=== PATIENT | female | born 1970 | race Caucasian/White ===

== ENCOUNTER 2017-12-28 11:01 | Emergency (ER) | payer OTHER ==
--- NOTE | 2017-12-28 11:12 | UC ---
Cardiac HPI - HPI Summary HPI Summary: Pt presents with neck pain, left sided jaw pain, heart "squeezing", and nausea. She tells me that her neck pain started first about 2 days ago and is causing tingling in her left arm. Yesterday she began to have nausea and left neck/jaw pain. This morning she felt ok, but her symptoms returned and she had chest pain described as a "squeezing" and felt dizzy. She tells me that she has a history of a cardiac abnormality and thinks its WPW. She is followed by cards and is scheduled for a stress echo in the coming weeks. Denies fever, chills, SOB, abdominal pain, vomiting, or headache. - History of Current Complaint Stated Complaint: ARM PAIN NECK PAIN INDIGESTION CHEST PAIN Time Seen by Provider: 12/28/17 11:03 Hx Obtained From: Patient Hx Last Menstrual Period: just finisheing Onset/Duration: Gradual Onset Character: Pressure/Squeezing - Allergy/Home Medications Allergies/Adverse Reactions: Allergies Allergy/AdvReac Type Severity Reaction Status Date / Time No Known Allergies Allergy Verified 12/28/17 11:18 Home Medications: Home Medications Gabapentin 300 mg PO DAILY 12/28/17 [History Confirmed 12/28/17] PMH/Surg Hx/FS Hx/Imm Hx - Additional Past Medical History Additional PMH: WPW Anxiety GI/ History: Gastroesophageal Reflux - Surgical History Surgical History: None - Family History Known Family History: Positive: None - reviewed & noncontributory - Social History Occupation: Employed Full-time Lives: With Family Alcohol Use: Occasionally Substance Use Type: None Smoking Status (MU): Never Smoked Tobacco Review of Systems Constitutional: Negative Skin: Negative Respiratory: Negative Cardiovascular: Chest Pain Gastrointestinal: Nausea Motor: Negative Neurovascular: Negative Musculoskeletal: Negative Neurological: Weakness All Other Systems Reviewed And Are Negative: Yes Physical Exam - Summary Physical Exam Summary: GENERAL: NAD. WDWN. No pain distress. SKIN: No rashes, sores, ulcers, masses, lesions. HEENT: Head: AT/NC Eyes: EOM intact. Conjunctiva clear without inflammation or discharge. NECK: Supple. Nontender. No lymphadenopathy. No JVD or carotid bruits. CHEST: CTAB. No r/r/w. No accessory muscle use. Breathing comfortably and in no distress. CV: RRR. Without m/r/g. Pulses intact. Brisk cap refill. ABDOMEN: NTTP. Bowel sounds present x4. NEURO: Alert. CN II-XII grossly intact. PSYCH: Age appropriate behavior. Triage Information Reviewed: Yes - Assessment/Plan Course Of Treatment: Sinus rhythm HR 95. No ST changes. Read by Dr. Connor. I advised the pt that she should be seen in the ED for an appropriate evaluation of her chest pain. She was agreeable to this and refused ambulance transfer - her will drive her. - Clinical Impression Provider Diagnoses: Dizziness. Chest pain. Nausea Discharge - Discharge Plan Condition: Stable Disposition: OTHER Discharge Disposition Comment: To [facility] by private vehicle Referrals: Rebecca Stephen MD [Primary Care Provider] - Additional Instructions: Please go to the [facility] ED for further evaluation of your chest pain. If your symptoms worsen - please wool puller and call 911.
[2017-12-28 11:18] VITALS: BP 123/73
== END 2017-12-28 11:23 ==
LOC: UCEAST 11:01
DX: R42 Dizziness and giddiness (principal); R07.9 Chest pain, unspecified; R11.0 Nausea; I45.6 Pre-excitation syndrome; K21.9 Gastro-esophageal reflux disease without esophagitis; F41.9 Anxiety disorder, unspecified
CPT/HCPCS: 93005; 99212; G0463

== ENCOUNTER 2017-12-28 11:49 | Emergency (ER) | payer OTHER ==
[2017-12-28 13:48] LABS: ABS Basophils 0 10^3/ul (0-0.2); ABS Eosinophils 0 10^3/ul (0-0.6); ABS Lymphocytes 1.2 10^3/ul (1.0-4.8); ABS Monocytes 0.5 10^3/ul (0-0.8); ABS Neutrophils 8.5 10^3/ul (1.5-7.7); ABS Nucleated RBC 0 10^3/ul; Eosinophil % 0.2 % (0-6); Hematocrit 40 % (35-47); Hemoglobin 13.6 g/dl (12.0-16.0); Lymphocyte % 11.8 % (25-47); Mean Corpuscular HGB Conc 34 g/dl (31-36); Mean Corpuscular Hemoglobin 31 pg (27-31); Mean Corpuscular Volume 91 fL (80-97); Mean Platelet Volume 9 um3 (7.4-10.4); Nucleated Red Blood Cells % 0; Platelet Count 249 10^3/ul (150-450); Red Blood Count 4.41 10^6/ul (4.0-5.4); Red Cell Distribution Width 13 % (10.5-15); White Blood Count 10.3 10^3/ul (3.5-10.8)
[2017-12-28 14:08] LABS: EGFR Non-African American 100.9 (>60)
--- NOTE | 2017-12-28 14:12 | RAD ---
HISTORY: Chest pain COMPARISONS: January 17, 2016 VIEWS: 1: frontal portable view of the chest at 1:55 PM FINDINGS: LINES AND TUBES: None. CARDIOMEDIASTINAL SILHOUETTE: The cardiomediastinal silhouette is normal for portable technique. PLEURA: The costophrenic angles are sharp. No pleural abnormalities are noted. LUNG PARENCHYMA: The lungs are clear. ABDOMEN: The upper abdomen is clear. There is no subphrenic gas. BONES AND SOFT TISSUES: No bone or soft tissue abnormalities are noted. IMPRESSION: NO ACTIVE CARDIOPULMONARY DISEASE.
[2017-12-28 17:19] VITALS: BP 100/67
--- NOTE | 2017-12-28 20:48 | ED ---
Samantha Zhang Edward, scribed for Durga Muhammad MD on 12/28/17 at 1317 . Complex/Multi-Sys Presentation - HPI Summary HPI Summary: 47 y/o female presents to the ED c/o squeezing sensation in her chest earlier today, lasting seconds that resolved. Pt also c/o neck and head pressure for a few weeks. Associated sx: upper ABD pain that radiates down bilateral arm pains starting yesterday, diarrhea. Pt states she has the ABD pain is chronic and is usually aggravated with certain foods. PMHx GERD. Pt states she has palpitations regularly, described as irregular "hiccup in heart". - History Of Current Complaint Chief Complaint: EDGeneral Time Seen by Provider: 12/28/17 13:16 Hx Obtained From: Patient Onset/Duration: Sudden Onset Timing: Intermittent, Lasting:, Seconds Character: Pressure - squeezing at chest Associated Signs And Symptoms: Positive: Chest Pain - squeezing, Diarrhea, Other - upper ABD pain radiating down both arms - Allergies/Home Medications Allergies/Adverse Reactions: Allergies Allergy/AdvReac Type Severity Reaction Status Date / Time No Known Allergies Allergy Verified 12/28/17 11:18 PMH/Surg Hx/FS Hx/Imm Hx Previously Healthy: No Endocrine/Hematology History: Denies: Hx Diabetes, Hx Thyroid Disease Cardiovascular History: Reports: 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 Denies: Hx Congestive Heart Failure, Hx Hypertension, Hx Pacemaker/ICD Respiratory History: Denies: Hx Asthma, Hx Chronic Obstructive Pulmonary Disease (COPD) GI History: Reports: Hx Gastroesophageal Reflux Disease Denies: Hx Ulcer History: Denies: Hx Renal Disease Musculoskeletal History: Denies: Hx Rheumatoid Arthritis, Hx Osteoporosis Sensory History: Denies: Hx Hearing Aid Psychiatric History: Denies: Hx Panic Disorder - Cancer History Hx Chemotherapy: No Hx Radiation Therapy: No Infectious Disease History: No Infectious Disease History: Denies: Hx Hepatitis, Hx Human Immunodeficiency Virus (HIV), Traveled Outside the [place] in Last 30 Days - Family History Known Family History: Positive: None - reviewed & noncontributory - Social History Alcohol Use: Occasionally Hx Substance Use: No Substance Use Type: Reports: None Hx Tobacco Use: No Smoking Status (MU): Never Smoked Tobacco Review of Systems Constitutional: Negative Eyes: Negative ENT: Other - neck and jaw pressure Positive: Chest Pain - squeezing pain Respiratory: Negative Positive: Abdominal Pain - radiating down both arms, Diarrhea Genitourinary: Negative Musculoskeletal: Negative Skin: Negative Neurological: Negative Psychological: Normal All Other Systems Reviewed And Are Negative: Yes Physical Exam - Summary Physical Exam Summary: Appearance: The patient is well-nourished in no acute distress and in no acute pain. Skin: The skin is warm and dry and skin color reflects adequate perfusion. HEENT: ~The head is normocephalic and atraumatic. The pupils are equal and reactive. The conjunctivae are clear and without drainage. ~Nares are patent and without drainage. Mouth reveals moist mucous membranes and the throat is without erythema and exudate. The external ears are intact. The ear canals are patent and without drainage. The tympanic membranes are intact. Neck: the neck is supple with full range of motion and non-tender. There are no carotid bruits. ~There is no neck vein distension. Respiratory: Chest is non-tender. ~Lungs are clear to auscultation and breath sounds are symmetrical and equal. Cardiovascular: Heart is regular rate and rhythm. ~There is no murmur or rub auscultated. ~~There is no peripheral edema and pulses are symmetrical and equal. Abdomen: The abdomen is soft and non-tender. ~There are normal bowel sounds heard in all four quadrants and there is no organomegaly palpated. Musculoskeletal: There is no back tenderness noted. ~Extremities are non-tender with full range of motion. ~There is good capillary refill. There is no peripheral edema or calf tenderness elicited. Neurological: Patient is alert and oriented to person, place and time. ~The patient has symmetrical motor strength in all four extremities. ~Cranial nerves are grossly intact. Deep tendon reflexes are symmetrical and equal in all four extremities. Psychiatric: The patient has an appropriate affect and does not exhibit any anxiety or depression. The patient is nervous. Triage Information Reviewed: Yes Vital Signs On Initial Exam: Initial Vitals Temp Pulse Resp BP Pulse Ox 98.8 F 88 16 121/69 97 12/28/17 11:51 12/28/17 11:51 12/28/17 11:51 12/28/17 11:51 12/28/17 11:51 Vital Signs Reviewed: Yes Diagnostics - Vital Signs Vital Signs Temp Pulse Resp BP Pulse Ox 12/28/17 11:51 98.8 F 88 16 121/69 97 - Laboratory Lab Results: Lab Results 12/28/17 12/28/17 12/28/17 Range/Units 13:34 13:34 13:34 WBC 10.3 (3.5-10.8) 10^3/ul RBC 4.41 (4.0-5.4) 10^6/ul Hgb 13.6 (12.0-16.0) g/dl Hct 40 (35-47) % MCV 91 (80-97) fL MCH 31 (27-31) pg MCHC 34 (31-36) g/dl RDW 13 (10.5-15) % Plt Count 249 (150-450) 10^3/ul MPV 9 (7.4-10.4) um3 Neut % (Auto) 83.3 H (38-83) % Lymph % (Auto) 11.8 L (25-47) % [place] % (Auto) 4.4 (0-7) % Eos % (Auto) 0.2 (0-6) % Baso % (Auto) 0.3 (0-2) % Absolute Neuts (auto) 8.5 H (1.5-7.7) 10^3/ul Absolute Lymphs (auto) 1.2 (1.0-4.8) 10^3/ul Absolute Monos (auto) 0.5 (0-0.8) 10^3/ul Absolute Eos (auto) 0 (0-0.6) 10^3/ul Absolute Basos (auto) 0 (0-0.2) 10^3/ul Absolute Nucleated RBC 0 10^3/ul Nucleated RBC % 0 D-Dimer, Quantitative < 200 (Less Than 230) ng/mL Sodium 137 (133-145) mmol/L Potassium 3.8 (3.5-5.0) mmol/L Chloride 102 (101-111) mmol/L Carbon Dioxide 29 (22-32) mmol/L Anion Gap 6 (2-11) mmol/L BUN 14 (6-24) mg/dL Creatinine 0.63 (0.51-0.95) mg/dL Est GFR ( Amer) 129.7 (>60) Est GFR (Non-Af Amer) 100.9 (>60) BUN/Creatinine Ratio 22.2 H (8-20) Glucose 98 (70-100) mg/dL Lactic Acid (0.5-2.0) mmol/L Calcium 9.3 (8.6-10.3) mg/dL Total Bilirubin 0.40 (0.2-1.0) mg/dL AST 15 (13-39) U/L ALT 13 (7-52) U/L Alkaline Phosphatase 56 (34-104) U/L Troponin I 0.00 (<0.04) ng/mL Total Protein 7.1 (6.4-8.9) g/dL Albumin 4.0 (3.2-5.2) g/dL Globulin 3.1 (2-4) g/dL Albumin/Globulin Ratio 1.3 (1-3) TSH 0.84 (0.34-5.60) mcIU/mL 12/28/17 12/28/17 Range/Units 13:34 16:10 WBC (3.5-10.8) 10^3/ul RBC (4.0-5.4) 10^6/ul Hgb (12.0-16.0) g/dl Hct (35-47) % MCV (80-97) fL MCH (27-31) pg MCHC (31-36) g/dl RDW (10.5-15) % Plt Count (150-450) 10^3/ul MPV (7.4-10.4) um3 Neut % (Auto) (38-83) % Lymph % (Auto) (25-47) % [place] % (Auto) (0-7) % Eos % (Auto) (0-6) % Baso % (Auto) (0-2) % Absolute Neuts (auto) (1.5-7.7) 10^3/ul Absolute Lymphs (auto) (1.0-4.8) 10^3/ul Absolute Monos (auto) (0-0.8) 10^3/ul Absolute Eos (auto) (0-0.6) 10^3/ul Absolute Basos (auto) (0-0.2) 10^3/ul Absolute Nucleated RBC 10^3/ul Nucleated RBC % D-Dimer, Quantitative (Less Than 230) ng/mL Sodium (133-145) mmol/L Potassium (3.5-5.0) mmol/L Chloride (101-111) mmol/L Carbon Dioxide (22-32) mmol/L Anion Gap (2-11) mmol/L BUN (6-24) mg/dL Creatinine (0.51-0.95) mg/dL Est GFR ( Amer) (>60) Est GFR (Non-Af Amer) (>60) BUN/Creatinine Ratio (8-20) Glucose (70-100) mg/dL Lactic Acid 0.8 (0.5-2.0) mmol/L Calcium (8.6-10.3) mg/dL Total Bilirubin (0.2-1.0) mg/dL AST (13-39) U/L ALT (7-52) U/L Alkaline Phosphatase (34-104) U/L Troponin I 0.00 (<0.04) ng/mL Total Protein (6.4-8.9) g/dL Albumin (3.2-5.2) g/dL Globulin (2-4) g/dL Albumin/Globulin Ratio (1-3) TSH (0.34-5.60) mcIU/mL Result Diagrams: 12/28/17 13:34 12/28/17 13:34 Lab Statement: Any lab studies that have been ordered have been reviewed, and results considered in the medical decision making process. - Radiology CXR Xray Interpretation: No Acute Changes - No active cardiopulmonary disease Radiology Interpretation Completed By: Radiologist - ED physician reviews and agrees - EKG 1 EKG Interpretation: Normal Sinus Rhythm @ 74 BPM. Complex Multi-Symp Course/Dx Course Of Treatment: Ms. Hillman presented with an atypical chest pain concerned that it was her heart. She had a normal exam and remained stable while on the monitor while she was here. Her W/U including a d-dimer and two troponins was WNL. I recommended close F/U with her PMD. - Diagnoses Provider Diagnoses: Chest pain Discharge - Discharge Plan Condition: Stable Disposition: HOME Patient Education Materials: Chest Pain (ED) Referrals: Rebecca Stephen MD [Primary Care Provider] - 4 Days (PLEASE F/U IN 3-5 DAYS) Additional Instructions: RETURN FOR WORSENING SYMPTOMS The documentation as recorded by the Samantha landon Edward accurately reflects the service I personally performed and the decisions made by , Durga Muhammad MD.
== END 2017-12-28 17:22 | disposition home or self-care (01) ==
LOC: ED 11:49
DX: R07.9 Chest pain, unspecified (principal); R19.7 Diarrhea, unspecified
CPT/HCPCS: 36415; 71045; 80053; 83605; 84443; 84484; 85025; 85379; 93005; 99283

== ENCOUNTER 2019-10-22 09:40 | Emergency (ER) | payer OTHER ==
--- OUTSIDE RECORDS SUMMARY | 2019-10-22 09:48 | XMS REPORT | Continuity of Care Document ---
:1970 External Reference #:[id number] Author Name Shira Adams MD Address [facility] [place] [address] Care Team Providers Name Role Phone Vladimir Rodriguez MD Care Team Information Heel Scourer [phone] Problems Description No Information Available Social History Type Date Description Comments Sex Unknown ETOH Use Drinks 6 Alcoholic Beverages Per Week Tobacco Use Start: Unknown Patient has never smoked Smoking Status Reviewed: 08/09/19 Patient has never smoked Allergies, Adverse Reactions, Alerts Description No Known Drug Allergies Medications Active Medications SIG Qnty Indications Ordering Provider Date Suprep Bowel Prep Kit as directed 1units Shira 09/12/2019 MD Angie 17.5-3.13-1.6GM/177ML Solution Pantoprazole Sodium take one tablet 30tabs Shira by mouth every MD Angie 40mg Tablets DR day Gabapentin Take One Capsule Unknown 400mg By Mouth Every Capsules Day Immunizations Description No Information Available Vital Signs Date Vital Result Comment 08/09/2019 3:46pm Height 64 inches 5'4" Weight 138.00 lb BP Systolic 101 mmHg BP Diastolic 72 mmHg Heart Rate 71 /min BMI (Body Mass Index) 23.7 kg/m2 12/04/2015 9:36am Height 64 inches 5'4" Weight 142.00 lb BP Systolic 100 mmHg BP Diastolic 68 mmHg BMI (Body Mass Index) 24.4 kg/m2 Results Test Acquired Date Facility Test Result H/L Range Note Disaccharidase Analysis 09/14/2019 [facility] Lactase 16.5 1 Sucrase 40.6 2 Maltase 136.0 3 Palatinase 7.5 4 Interpretation See Comment 5 Laboratory test 09/14/2019 [facility] Surgical Pathology SEE RESULT 6 finding Order BELOW Laboratory test 09/14/2019 [facility] Point of Care 73 mg/dL Normal 70-100 7 finding Glucose 1 REFERENCE VALUE Range 24.5 +/- 8.0 Abnormal <15.0 Units = uM/min/gram protein 2 REFERENCE VALUE Range 54.4 +/- 25.4 Abnormal <25.0 Units = uM/min/gram protein 3 REFERENCE VALUE Range 160.8 +/- 62.8 Abnormal <100.0 Units = uM/min/gram protein 4 REFERENCE VALUE Range 11.1 +/- 6.5 Abnormal <5.0 Units = uM/min/gram protein 5 The intestinal biopsy from this patient had normal disaccharidase activities. Test Performed by: [facility] [address] [place] [address] 6 SEE RESULT BELOW Name: CHETNA HILLMAN : [address]: Shira Adams MD Acct: [id number] Unit: [id number] AGE: 49 Location: ENDO Re09/14/19 SEX: F Status: DEP REF SPEC: [id number] RENATE: 09/14/19-[address] [facility] [address]: Shira Fofana MD REQ: [id number] RECD: 09/14/19 STATUS: LARISA WEINER DR: Vladimir Rodriguez MD _ ORDERED: LEVEL 4/3 FINAL DIAGNOSIS 1. Small bowel, duodenum, biopsy: -- Small bowel mucosa with normal villous architecture and no significant pathologic abnormality. -- No villous blunting or increased lamina propria lymphoplasmacytic infiltrate identified. 2. Distal esophagus, biopsies: -- Superficial squamous epithelium with no significant pathologic abnormality. -- No evidence of reflux esophagitis identified. -- No glandular component identified. 3. Mid esophagus, biopsies: -- Superficial squamous epithelium with no significant pathologic abnormality. -- No evidence of reflux or allergic/eosinophilic esophagitis identified. -- No glandular component identified. CLINICAL HISTORY Dysphagia, gastroesophageal reflux disease, colorectal carcinoma screen POST-OPERATIVE DIAGNOSIS EGD: esophagus-gastroesophageal junction at 37cm, no stricture, mid and distal biopsies; gastric-normal; duodenum-normal, biopsy, disaccharidase; colonoscopy to terminal ileum; tortuous; hemorrhoids CONTINUED ON NEXT PAGE DEPARTMENT OF PATHOLOGY, [address] [place] [address] Levi Dixon M.D. Director [facility] # [id number] GROSS DESCRIPTION 1. The specimen is received in formalin labeled, Duodenal Biopsies, and consists of a 0.8 x 0.7 x 0.3 cm aggregate of speckled [place]ana-red irregular to polypoid soft tissue fragments, which is entirely submitted in one cassette. 2. The specimen is received in formalin labeled, Distal Esophagus Biopsy, and consists of a 0.9 x 0.8 x 0.2 cm aggregate of lua-white irregular to polypoid soft tissue fragments, which is entirely submitted in one cassette. 3. The specimen is received in formalin labeled, Mid Esophagus Biopsy, and consists of a 0.7 x 0.5 x 0.2 cm aggregate of lua-white irregular to polypoid soft tissue fragments, which is entirely submitted in one cassette. Signed by and Reported on: Levi Dixon MD 12/07 1037 END OF REPORT DEPARTMENT OF PATHOLOGY, [address] [place] [address] Levi Dixon M.D. Director [facility] # [id number] SEE RESULT BELOW Name: CHTENA HILLMAN : [address]: Shira Adams MD Acct: [id number] Unit: [id number] AGE: 49 Location: ENDO Re09/14/19 SEX: F Status: DEP REF SPEC: [id number] RENATE: 09/14/19-[address] [facility] [address]: Shira Fofana MD REQ: [id number] RECD: 09/14/19 STATUS: LARISA WEINER DR: Vladimir Rodriguez MD _ ORDERED: LEVEL 4/3 FINAL DIAGNOSIS 1. Small bowel, duodenum, biopsy: -- Small bowel mucosa with normal villous architecture and no significant pathologic abnormality. -- No villous blunting or increased lamina propria lymphoplasmacytic infiltrate identified. 2. Distal esophagus, biopsies: -- Superficial squamous epithelium with no significant pathologic abnormality. -- No evidence of reflux esophagitis identified. -- No glandular component identified. 3. Mid esophagus, biopsies: -- Superficial squamous epithelium with no significant pathologic abnormality. -- No evidence of reflux or allergic/eosinophilic esophagitis identified. -- No glandular component identified. CLINICAL HISTORY Dysphagia, gastroesophageal reflux disease, colorectal carcinoma screen POST-OPERATIVE DIAGNOSIS EGD: esophagus-gastroesophageal junction at 37cm, no stricture, mid and distal biopsies; gastric-normal; duodenum-normal, biopsy, disaccharidase; colonoscopy to terminal ileum; tortuous; hemorrhoids CONTINUED ON NEXT PAGE DEPARTMENT OF PATHOLOGY, [address] [place] [address] Levi Dixon M.D. Director [facility] # [id number] GROSS DESCRIPTION 1. The specimen is received in formalin labeled, Duodenal Biopsies, and consists of a 0.8 x 0.7 x 0.3 cm aggregate of speckled montana-red irregular to polypoid soft tissue fragments, which is entirely submitted in one cassette. 2. The specimen is received in formalin labeled, Distal Esophagus Biopsy, and consists of a 0.9 x 0.8 x 0.2 cm aggregate of lua-white irregular to polypoid soft tissue fragments, which is entirely submitted in one cassette. 3. The specimen is received in formalin labeled, Mid Esophagus Biopsy, and consists of a 0.7 x 0.5 x 0.2 cm aggregate of lua-white irregular to polypoid soft tissue fragments, which is entirely submitted in one cassette. Signed by and Reported on: Levi Dixon MD 12/07 1037 END OF REPORT DEPARTMENT OF PATHOLOGY, [address] [place] [address] Levi Dixon M.D. Director [facility] # [id number] SEE RESULT BELOW Name: EDUINCHETNA L : [address]: Shira Adams MD Acct: [id number] Unit: [id number] AGE: 49 Location: ENDO Re09/14/19 SEX: F Status: DEP REF SPEC: [id number] RENATE: 09/14/19-[address] [facility] [address]: Shira Fofana MD REQ: [id number] RECD: 09/14/19 STATUS: LARISA WEINER DR: Vladimir Rodriguez MD _ ORDERED: LEVEL 4/3 FINAL DIAGNOSIS 1. Small bowel, duodenum, biopsy: -- Small bowel mucosa with normal villous architecture and no significant pathologic abnormality. -- No villous blunting or increased lamina propria lymphoplasmacytic infiltrate identified. 2. Distal esophagus, biopsies: -- Superficial squamous epithelium with no significant pathologic abnormality. -- No evidence of reflux esophagitis identified. -- No glandular component identified. 3. Mid esophagus, biopsies: -- Superficial squamous epithelium with no significant pathologic abnormality. -- No evidence of reflux or allergic/eosinophilic esophagitis identified. -- No glandular component identified. CLINICAL HISTORY Dysphagia, gastroesophageal reflux disease, colorectal carcinoma screen POST-OPERATIVE DIAGNOSIS EGD: esophagus-gastroesophageal junction at 37cm, no stricture, mid and distal biopsies; gastric-normal; duodenum-normal, biopsy, disaccharidase; colonoscopy to terminal ileum; tortuous; hemorrhoids CONTINUED ON NEXT PAGE DEPARTMENT OF PATHOLOGY, [facility] [address] [place] [id number] Levi Dixon M.D. Director [facility] # [id number] GROSS DESCRIPTION 1. The specimen is received in formalin labeled, Duodenal Biopsies, and consists of a 0.8 x 0.7 x 0.3 cm aggregate of speckled [place]ana-red irregular to polypoid soft tissue fragments, which is entirely submitted in one cassette. 2. The specimen is received in formalin labeled, Distal Esophagus Biopsy, and consists of a 0.9 x 0.8 x 0.2 cm aggregate of lua-white irregular to polypoid soft tissue fragments, which is entirely submitted in one cassette. 3. The specimen is received in formalin labeled, Mid Esophagus Biopsy, and consists of a 0.7 x 0.5 x 0.2 cm aggregate of lua-white irregular to polypoid soft tissue fragments, which is entirely submitted in one cassette. Signed by and Reported on: Levi Dixon MD 12/07 1037 END OF REPORT DEPARTMENT OF PATHOLOGY, [facility] [address] [place], [place] [address] Levi Dixon M.D. Director [facility] # [id number] 7 Can Carrier: [id number] Procedures Description No Information Available Medical Devices Description No Information Available Encounters Type Date Location Provider Dx Diagnosis Office Visit 08/09/2019 Gastroenterology Shira K21.9 [facility]esophageal 3[facility] MD reflux disease without esophagitis R14.0 Abdominal distension (gaseous) Z12.11 Encounter for screening for malignant neoplasm of colon Assessments Date Code Description Provider 08/09/2019 K21.9 Gastro-esophageal reflux disease without Shira Fofana MD esophagitis 08/09/2019 R14.0 Abdominal distension (gaseous) Shira Adams MD 08/09/2019 Z12.11 Encounter for screening for malignant Shira Adams MD neoplasm of colon Plan of Treatment No Information Available Functional Status Description No Information Available Mental Status Description No Information Available Referrals Description No Information Available
--- OUTSIDE RECORDS SUMMARY | 2019-10-22 09:48 | XMS REPORT | Continuity of Care Document ---
:1970 External Reference #:[id number] Author Name Shira Adams MD Address [facility] [place] [address] Care Team Providers Name Role Phone Vladimir Rodriguez MD Care Team Information Spear Fisher [phone] Problems Description No Information Available Social History [...] Result H/L Range Note Disaccharidase Analysis 09/14/2019 [facility] [place] Lactase 16.5 1 Sucrase 40.6 2 Maltase 136.0 3 Palatinase 7.5 4 Interpretation See Comment 5 Laboratory test 09/14/2019 [facility] [place] Surgical Pathology SEE RESULT 6 finding Order BELOW Laboratory test 09/14/2019 [facility] [place] Point of Care 73 mg/dL Normal 70-100 [...] had normal disaccharidase activities. Test Performed by: [employer] [address] [place] [address] 6 SEE RESULT BELOW Name: CHETNA HILLMAN : [address]: Shira Adams MD Acct: [id number] Unit: [id number] AGE: 49 Location: ENDO Re09/14/19 SEX: F Status: DEP REF SPEC: [id number] RENATE: 09/14/19-1044 [facility] DR: Shira Fofana MD REQ: [id number] RECD: 09/14/19 STATUS: LARISA WEINER DR: Vladimir [...] CONTINUED ON NEXT PAGE DEPARTMENT OF PATHOLOGY, [address] [place] [address] Levi Dixon M.D. Director [facility] # [id number] GROSS DESCRIPTION 1. The specimen is received [...] 1037 END OF REPORT DEPARTMENT OF PATHOLOGY, [address] [place] [address] Levi Dixon M.D. Director [facility] # [id number] SEE RESULT BELOW Name: CHETNA HILLMAN : [address]: Shira Adams MD Acct: [id number] Unit: [id number] AGE: 49 Location: ENDO Re09/14/19 SEX: F Status: DEP REF SPEC: [id number] RENATE: 09/14/19-1044 [facility] DR: Shira Fofana MD REQ: [id number] RECD: 09/14/19 STATUS: LARISA WEINER DR: Vladimir [...] CONTINUED ON NEXT PAGE DEPARTMENT OF PATHOLOGY, [address] [place] [address] Levi Dixon M.D. Director [facility] # [id number] GROSS DESCRIPTION 1. The specimen is received [...] 1037 END OF REPORT DEPARTMENT OF PATHOLOGY, [address] [place] [address] Levi Dixon M.D. Director [facility] # [id number] SEE RESULT BELOW Name: EDUINCHETNA L : [address]: Shira Adams MD Acct: [id number] Unit: [id number] AGE: 49 Location: ENDO Re09/14/19 SEX: F Status: DEP REF SPEC: [id number] RENATE: 09/14/19-10[address] [facility] DR: Shira Fofana MD REQ: [id number] RECD: 09/14/19 STATUS: LARISA WEINER DR: Vladimir [...] CONTINUED ON NEXT PAGE DEPARTMENT OF PATHOLOGY, [facility] [place] [id number] Levi Dixon M.D. Director [facility] # [id number] GROSS DESCRIPTION 1. The specimen is received [...] 1037 END OF REPORT DEPARTMENT OF PATHOLOGY, [facility] [place], [place] [address] Levi Dixon M.D. Director [facility] # [id number] 7 Wash Box Operator: [id number] Procedures Description No Information Available Medical Devices [...]
[2019-10-22 09:49] VITALS: BP 110/70
--- NOTE | 2019-10-22 10:06 | UC ---
Throat Pain/Nasal Shreyas HPI - HPI Summary HPI Summary: Patient is a 49 old female who states for the last 7 days she's had body aches, congestion, sinus pressure, and cough. Patient states initially that she thought was a head cold. Patient states she was feeling better until 2 days ago when she started coughing up green sputum. Patient denies nausea vomiting. Patient decreased appetite. No rash. Patient has been taking ibuprofen as well as Tylenol. Additionally patient has been using NyQuil and cough medication. Last dose was at 7 AM. Patient states she is unsure whether she got a flu vaccine. Patient states she contacted her PCP who recommended she come here because she's been sick for so many days. Patient does not milk otherwise. Patient's medications as entered in the EMR by triage were reviewed. - History of Current Complaint Chief Complaint: UCRespiratory Stated Complaint: CHEST/HEAD CONGESTION COUGH Time Seen by Provider: 10/22/19 10:01 Hx Obtained From: Patient Hx Last Menstrual Period: 10/12/19 Onset/Duration: Gradual Onset Severity: Moderate Pain Intensity: 5 Pain Scale Used: 0-10 Numeric - Allergies/Home Medications Allergies/Adverse Reactions: Allergies Allergy/AdvReac Type Severity Reaction Status Date / Time No Known Allergies Allergy Verified 10/22/19 09:46 PMH/Surg Hx/FS Hx/Imm Hx Previously Healthy: Yes - Surgical History Surgical History: None - Family History Known Family History: Positive: None - reviewed & noncontributory, Non- Contributory - Social History Occupation: Employed Full-time Lives: With Family Alcohol Use: Occasionally Substance Use Type: None Smoking Status (MU): Never Smoked Tobacco Review of Systems All Other Systems Reviewed And Are Negative: Yes Constitutional: Positive: Fever - tactile, Fatigue Skin: Positive: Negative Eyes: Positive: Negative ENT: Positive: Sore Throat, Ear Ache, Nasal Discharge, Sinus Congestion Respiratory: Positive: Cough Cardiovascular: Positive: Negative Gastrointestinal: Positive: Negative Genitourinary: Positive: Negative Physical Exam - Summary Physical Exam Summary: Vital Signs Reviewed: Yes A+Ox3, no distress Eyes: Conjunctiva Clear, TIMMY. EOM intact and full ENT: Hearing grossly normal TM x 2 clear, sinus congestion/boggy, + PND, mmoist , uvula midline, no exudate, + erythema Neck: Positive: Supple Respiratory: Positive: No respiratory distress, No accessory muscle use + coarse cough, end exp wheeze, mild cough Cardiovascular: RRR nl s1, s2 no m/r CBT <2 sec abd soft + BS nt/nd no guarding, no distension Musculoskeletal Exam: PAULINO x 4 without difficulty Strength Intact, ROM Intact Neurological: Positive: Alert, + sensation throughout Psychological: Positive: Normal Response To fitness and wellness director Skin: Positive: no rash, no ecchymosis Triage Information Reviewed: Yes Vital Signs: Initial Vital Signs Temp 97.6 F 10/22/19 09:47 Pulse 83 10/22/19 09:47 Resp 16 10/22/19 09:47 BP 110/70 10/22/19 09:47 Pulse Ox 100 10/22/19 09:47 Throat Pain/Nasal Course/Dx - Course Course Of Treatment: Patient presents to urgent care reporting 7 days of bodyaches, fatigue, cough. Patient isn't showing Bentyl 24 hours ago with cough became more thick and secretions were drained. Patient's son taking several bqle-wpx-tsliivl substances with ongoing symptoms. Patient called her PCP who recommended she come here. Patient unsure whether she got the flu vaccine. On exam vital signs are stable. Patient tired appearing with sinus congestion postnasal drip mild intermittent cough. Patient was with some end expiratory wheezing. Discussed with patient Mary Larios. Patient hasn't had 7 days of symptoms and tactile fevers. Will start patient on antibiotics. Secretion percussion. Continue with lkpr-uqd-ikdweeg medications for symptom support. Patient also given a prescription for Flonase and Diflucan as needed. Strict return precautions discussed. Patient comfortable and in agreement with plan. - Differential Dx/Diagnosis Provider Diagnosis: Acute bronchitis Discharge ED - Sign-Out/Discharge Documenting (check all that apply): Patient Departure All imaging exams completed and their final reports reviewed: No Studies - Discharge Plan Condition: Stable Disposition: HOME Prescriptions: Amoxicillin/Clavulanate TAB* [Augmentin TAB 875*] 875 mg PO BID #20 tab Fluconazole 150 MG TAB* [Diflucan 150 MG TAB*] 150 mg PO ONCE PRN #1 tablet PRN Reason: vaginal yeast infection Fluticasone NASAL SPRAY 50MCG* [Flonase NASAL SPRAY 50MCG*] 2 spray BOTH NARES DAILY #1 btl Patient Education Materials: Acute Bronchitis (ED) Referrals: Vladimir Rodriguez MD [Primary Care Provider] - Additional Instructions: -Take antibiotics exactly as prescribed until gone -Stay well hydrated - avoid excess caffeine and all alcohol - eat regular, healthy meals - - humidify the air in the room where you sleep - boil water, run a hot steam shower, vaporizer, cups of water by heat register - okay to take over the counter decongestant and cough medication -- These infections are spread by secretions - do NOT share eating or drinking utensils - clean items you share with other people such as cell phones, computer mouse, TV remote, computer tablets,etc.. Once you have been antibiotics for 2 days, change your toothbrush and your pillowcase. -Okay to alternate ibuprofen (Advil, Motrin) and Tylenol (acetaminophen) every 3 hours for pain or fever. Take with food. Do NOT take for more than 4-5 days. - use nasal spray as prescribed - you a have been given the treatment medication for vaginal yeast infection - okay to take if you develop an infection following the antibiotics -Contact your doctor to arrange a follow-up appointment this week. Call your doctor, return here or go to the emergency department with any questions or concerns - Billing Disposition and Condition Condition: STABLE Disposition: Home
== END 2019-10-22 10:25 | disposition home or self-care (01) ==
LOC: UCEAST 09:40
DX: J20.9 Acute bronchitis, unspecified (principal); R09.89 Other specified symptoms and signs involving the circulatory and respiratory systems; R09.81 Nasal congestion; H92.09 Otalgia, unspecified ear
CPT/HCPCS: 99212; G0463